=== PATIENT | male | born 1960 | race Caucasian/White ===

== ENCOUNTER 2016-12-18 05:21 | Emergency (ER) | payer OTHER ==
[~2016-12-18] VITALS: Ht 172.7 cm; Wt 99.8 kg
[~2016-12-18 05:21] MED LIST: /WARF25TA OR; ACET65TA OR; ASPI325T PO; ATEN50TA2 PO; COUM10TA OR; GLUC1000 PO; IBUP600T OR; NEOSSOL TOP; NEUR100C PO; NEUR400C PO; PERC5TAB8 OR; QUINAPRIL HCL PO; SERTRALINE PO; SIMV80TA PO
[2016-12-18 05:45] LABS: BASO % 0.2 % (0.0-1.0); EOS % 0.5 % (0.0-3.0); LARGE UNSTAINED CELL # 0.1 K/mm3 (0.0-0.4); LARGE UNSTAINED CELL % 1.4 % (0.0-4.0); LYMPH # 1.8 K/mm3 (1.5-4.5); LYMPH % 17.1 % (24.0-44.0); MEAN CORPUSCULAR HEMOGLOBIN 32.2 pg (27.0-33.0); MEAN CORPUSCULAR HGB CONC 32.4 g/dl (32.0-36.5); MEAN CORPUSCULAR VOLUME 99.3 fl (80.0-96.0); MONO # 0.4 K/mm3 (0.0-0.8); MONO % 3.8 % (0.0-5.0); NEUTROPHILS # 7.9 K/mm3 (1.8-7.7); PLATELET COUNT, AUTOMATED 273 k/mm3 (150-450); RED CELL DISTRIBUTION WIDTH 12.9 % (11.5-14.5); WHITE BLOOD COUNT 10.3 K/mm3 (4.0-10.0)
[2016-12-18] MEDS ORDERED: NS 1,000 ML IV ONE (05:45)
[2016-12-18] MEDS ORDERED: ATEN25TA (05:47)
[2016-12-18] MEDS ORDERED: GABA-282 (05:47)
[2016-12-18] MEDS ORDERED: HYDR-3713 (05:47)
[2016-12-18] MEDS ORDERED: ROSU10TA2 (05:47)
[2016-12-18] MEDS ORDERED: AMLO5TAB2 (05:47)
[2016-12-18] MEDS ORDERED: TIZA4CAP3 ×2 (05:47)
[2016-12-18] MEDS ORDERED: SYNT75TA (05:47)
[2016-12-18] MEDS ORDERED: SITA50TAB (05:47)
[2016-12-18] MEDS ORDERED: MIDAZOLAM INJ 2 MG/2 ML VIAL (J2250) IV STA (05:57)
[2016-12-18] MEDS ORDERED: MIDAZOLAM INJ 2 MG/2 ML VIAL (J2250) As Ordered ONE (06:00)
[2016-12-18] MEDS ORDERED: FLUMAZENIL 0.5 MG/5 ML VIAL IV STA ×2 (06:09→06:32)
[2016-12-18 06:10] LABS: ALBUMIN 3.2 GM/DL (3.2-5.2); ALBUMIN/GLOBULIN RATIO 1.07 (1.00-1.93); BILIRUBIN,DIRECT 0.1 MG/DL (0.0-0.2); BILIRUBIN,TOTAL 0.5 MG/DL (0.2-1.0); CALCIUM LEVEL 8.1 MG/DL (8.5-10.1); CREATININE FOR GFR 2.57 MG/DL (0.70-1.30); GLOMERULAR FILTRATION RATE 27.5 (>56); TOTAL PROTEIN 6.2 GM/DL (6.4-8.2)
[2016-12-18] MEDS ORDERED: FLUMAZENIL 0.5 MG/5 ML VIAL As Ordered ONE (06:12)
[2016-12-18 06:17] VITALS: O2SAT 96
[2016-12-18 06:27] LABS: MAGNESIUM LEVEL 2.3 MG/DL (1.8-2.4)
[2016-12-18] MEDS ORDERED: HEPARIN DRIP 25,000 UNITS in APPROPRIATE DILUENT 1 EA IV SCH (06:44)
[2016-12-18] MEDS ORDERED: HEPARIN SOD (PORCINE) 5000 UNITS/ML VIAL IV ONE (06:45)
[2016-12-18] MEDS ORDERED: DEXTROSE 50% 50 ML SYRINGE IV STA (07:06)
[2016-12-18] MEDS ORDERED: HumuLIN R (REGULAR) INSULIN (NovoLIN R) **100U/ML** PER UNIT IV STA (07:06)
[2016-12-18] MEDS ORDERED: CALCIUM CHLORIDE 10% 1 GM in D5W 100 ML IV ONE (07:15)
--- NOTE | 2016-12-18 07:22 | REP ---
Clinical: Chest pain. Comparison: 05/31/2011. Findings: Mediastinum and cardiac silhouette are stable. Lung zazueta demonstrate diffuse chronic interstitial changes less likely representing interstitial edema. No focal consolidation, effusion, or pneumothorax. Multiple old healed right rib fractures again noted. Impression: Increased interstitial markings likely represent chronic change less likely representing interstitial edema. No focal consolidation. Signed by Yuri Lam MD 12/18/2016 07:14 A
[2016-12-18 07:35] VITALS: BP 104/63
--- NOTE | 2016-12-18 10:22 | ECGEPIP ---
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
--- NOTE | 2016-12-19 19:12 | ECGEPIP ---
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
== END 2016-12-18 08:07 | disposition short-term general hospital (02) ==
LOC: EDBD 05:21 → M ED 07:57
DX: I21.4 Non-ST elevation (NSTEMI) myocardial infarction (principal); I47.2 Ventricular tachycardia; N18.9 Chronic kidney disease, unspecified; R06.02 Shortness of breath; I12.9 Hypertensive chronic kidney disease with stage 1 through stage 4 chronic kidney disease, or unspecified chronic kidney disease; I25.10 Atherosclerotic heart disease of native coronary artery without angina pectoris; I25.2 Old myocardial infarction; I45.10 Unspecified right bundle-branch block; G47.33 Obstructive sleep apnea (adult) (pediatric); E66.9 Obesity, unspecified; E78.00 Pure hypercholesterolemia, unspecified; F32.9 Major depressive disorder, single episode, unspecified; Z79.899 Other long term (current) drug therapy; Z79.84 Long term (current) use of oral hypoglycemic drugs; Z79.82 Long term (current) use of aspirin; Z79.01 Long term (current) use of anticoagulants
CPT/HCPCS: 71010; 80048; 80076; 82550; 82553; 83690; 83735; 83880; 85025; 93005; 93041; 94760; 96365; 96375; 99285; J2250

== ENCOUNTER → 2017-05-10 | Outpatient (CLI) | payer OTHER ==
[~2017-05-10] MED LIST changes: +AMLO5TAB2; +ATEN25TA; +GABA-282; +HYDR-3713; +ROSU10TA2; +SITA50TAB; +SYNT75TA; +TIZA4CAP3
[2017-05-10 12:59] LABS: BASO % 0.7 % (0.0-1.0); EOS # 0.2 10^3/uL (0.0-0.50); EOS % 4.2 % (0.0-3.0); IMMATURE GRANULOCYTE % 0.2 % (0-0); LYMPH # 1.1 10^3/uL (1.5-4.5); LYMPH % 24.3 % (24.0-44.0); MEAN CORPUSCULAR HGB CONC 32.4 g/dl (32.0-36.5); MEAN CORPUSCULAR VOLUME 92.6 fl (80.0-96.0); MONO # 0.3 10^3/uL (0.0-0.8); MONO % 6.4 % (0.0-5.0); NEUTROPHILS # 2.9 10^3/uL (1.8-7.7); NEUTROPHILS % 64.2 % (36.0-66.0); PLATELET COUNT, AUTOMATED 208 10^3/uL (150-450); RED CELL DISTRIBUTION WIDTH 11.8 % (11.5-14.5); WHITE BLOOD COUNT 4.6 10^3/uL (4.0-10.0)
[2017-05-10 13:02] LABS: ADD MANUAL DIFFER NO; DIFF SLIDE NUMBER 145
[2017-05-10 13:30] LABS: ALBUMIN 3.6 GM/DL (3.2-5.2); ALBUMIN/GLOBULIN RATIO 1.06 (1.00-1.93); ALKALINE PHOSPHATASE 79 U/L (45-117); ALT/SGPT 22 U/L (12-78); ANION GAP 5 MEQ/L (8-16); AST/SGOT 17 U/L (15-37); BILIRUBIN,TOTAL 0.3 MG/DL (0.2-1.0); BLOOD UREA NITROGEN 16 MG/DL (7-18); CALCIUM LEVEL 8.3 MG/DL (8.5-10.1); CARBON DIOXIDE LEVEL 30 MEQ/L (21-32); CHLORIDE LEVEL 102 MEQ/L (98-107); CHOLESTEROL LEVEL 152 MG/DL (<200); FREE T4 1.12 NG/DL (0.76-1.46); GLOMERULAR FILTRATION RATE > 60.0 (>56); GLUCOSE, FASTING 168 MG/DL (70-105); SODIUM LEVEL 137 MEQ/L (136-145); TRIGLYCERIDES LEVEL 199 MG/DL (<150)
[2017-05-10 13:36] LABS: POTASSIUM SERUM 5.3 MEQ/L (3.5-5.1)
== END ==
LOC: M LAB 12:20
PROVIDERS: ATTEND Family Medicine
DX: E11.22 Type 2 diabetes mellitus with diabetic chronic kidney disease (principal); E78.2 Mixed hyperlipidemia; E03.9 Hypothyroidism, unspecified

== ENCOUNTER → 2017-08-07 | Outpatient (CLI) | payer BC ==
[2017-08-07 14:46] LABS: ESTIMATED AVERAGE GLUCOSE 166 MG/DL (60-110); HEMOGLOBIN A1c 7.4 %
[2017-08-07 21:35] LABS: ALBUMIN 4.2 GM/DL (3.2-5.2); ALBUMIN/GLOBULIN RATIO 1.27 (1.00-1.93); ALKALINE PHOSPHATASE 80 U/L (45-117); ALT/SGPT 33 U/L (12-78); ANION GAP 7 MEQ/L (8-16); AST/SGOT 24 U/L (7-37); BILIRUBIN,TOTAL 0.4 MG/DL (0.2-1.0); BLOOD UREA NITROGEN 27 MG/DL (7-18); CALCIUM LEVEL 8.8 MG/DL (8.5-10.1); CARBON DIOXIDE LEVEL 29 MEQ/L (21-32); CHLORIDE LEVEL 106 MEQ/L (98-107); CHOLESTEROL LEVEL 213 MG/DL (<200); CHOLESTEROL RISK RATIO 4.531 (<5); CREATININE FOR GFR 1.61 MG/DL (0.70-1.30); GLUCOSE, FASTING 141 MG/DL (70-105); HDL CHOLESTEROL 47 MG/DL (>40); LDL CHOLESTEROL 130.2 MG/DL (<100); NON-HDL-C 166 MG/DL; SODIUM LEVEL 142 MEQ/L (136-145); TOTAL PROTEIN 7.5 GM/DL (6.4-8.2); TRIGLYCERIDES LEVEL 179 MG/DL (<150)
[2017-08-07 21:36] LABS: POTASSIUM SERUM 5.2 MEQ/L (3.5-5.1)
[2017-08-09 00:06] LABS: PSA TOTAL 0.5 ng/mL (0.0-4.0)
== END ==
LOC: M SMT 09:35
DX: Z00.00 Encounter for general adult medical examination without abnormal findings (principal); E11.22 Type 2 diabetes mellitus with diabetic chronic kidney disease; R39.15 Urgency of urination; I25.10 Atherosclerotic heart disease of native coronary artery without angina pectoris
CPT/HCPCS: 80053

== ENCOUNTER → 2020-03-25 | Outpatient (CLI) | payer SELFPAY ==
[~2020-03-25] MED LIST changes: -/WARF25TA OR; +AMLO1TAB24; -AMLO5TAB2; -ATEN25TA; +ATEN25TA PO; +COUM1TAB18 OR; +ELIQ5TAB PO; -GABA-282; +GABA-843; +GABA-843 PO; +JANU100T PO; +MEXI15CA PO; +NEUR300C PO; -ROSU10TA2; +ROSU10TA6 PO; -SYNT75TA; +SYNT75TA PO; +TIZA2TAB6 PO; +TIZA4CAP; -TIZA4CAP3; +TIZA4TAB4 PO
== END ==
LOC: M LABSMTC 08:25
PROVIDERS: ATTEND Anesthesiology
DX: Z01.812 Encounter for preprocedural laboratory examination (principal); Z11.59 Encounter for screening for other viral diseases